=== PATIENT | female | born 1985 | race Caucasian/White ===

== ENCOUNTER 2024-12-08 21:06 | Emergency (ER) | payer SELFPAY ==
[2024-12-08] MEDS ORDERED: IBUPROFEN 800 MG TAB PO ONE (21:30)
[2024-12-09] MEDS ORDERED: PREDNISONE20 M1 PO (11:17)
[2024-12-09] MEDS ORDERED: PEPCID20 MG PO (11:17)
[2024-12-09] MEDS ORDERED: EPIPEN 2-P0.3 MG/0.3 IJ (11:19)
== END 2024-12-08 21:58 | disposition home or self-care (01) ==
LOC: ED 21:06
DX: R22.0 Localized swelling, mass and lump, head (principal)

== ENCOUNTER 2024-12-09 08:51 | Emergency (ER) | payer SELFPAY ==
[~2024-12-09] VITALS: Ht 160 cm; Wt 114.8 kg
[2024-12-09] MEDS ORDERED: FAMOTIDINE 50 ML IV ONE (09:30)
[2024-12-09] MEDS ORDERED: diphenhydrAMINE hydrochloride 50 MG/ML VIAL IV ONE (09:30)
[2024-12-09] MEDS ORDERED: PEPCID20 MG PO (11:17)
[2024-12-09] MEDS ORDERED: PREDNISONE20 M1 PO (11:17)
[2024-12-09] MEDS ORDERED: EPIPEN 2-P0.3 MG/0.3 IJ (11:19)
== END 2024-12-09 14:24 | disposition home or self-care (01) ==
LOC: ED 08:51
DX: T78.3XXA Angioneurotic edema, initial encounter (principal); E66.9 Obesity, unspecified; Z68.30 Body mass index [BMI] 30.0-30.9, adult; X58.XXXA Exposure to other specified factors, initial encounter; Y93.89 Activity, other specified; Y92.89 Other specified places as the place of occurrence of the external cause; Y99.8 Other external cause status